=== PATIENT | male | born 1990 ===

== ENCOUNTER 2021-05-15 16:35 | Emergency (ER) | payer SELFPAY ==
[2021-05-15] MEDS ORDERED: ONDANSETRON 4 MG ODT TAB PO ONE (17:41)
[2021-05-15] MEDS ORDERED: MECLIZINE 25 MG TAB PO ONE (17:45)
--- NOTE | 2021-05-15 17:45 | Emergency Department Report ---
ED General Adult HPI - General Chief complaint: Dizziness Stated complaint: DIZZINESS WITH CHILLS Time Seen by Provider: 05/15/21 17:27 Source: judge's clerk Mode of arrival: Ambulatory Limitations: Language Barrier - Related Data Allergies Allergy/AdvReac Type Severity Reaction Status Date / Time No Known Allergies Allergy Verified 05/15/21 16:44 ED Review of Systems ROS: Stated complaint: DIZZINESS WITH CHILLS Other details as noted in HPI ED Past Medical Hx - Past Medical History Previous Medical History?: No ED Physical Exam - General Limitations: Language Barrier ED Course Vital Signs 05/15/21 16:42 Temperature 98.5 F Pulse Rate 98 H Respiratory 16 Rate Blood Pressure 154/71 O2 Sat by Pulse 97 Oximetry Critical care attestation.: If time is entered above; I have spent that time in minutes in the direct care of this critically ill patient, excluding procedure time. ED Disposition Condition: Stable Referrals: PRIMARY CARE [Primary Care Provider] - 3-5 Days
[2021-05-15 18:27] LABS: Basophils # (Auto) 0.1 K/mm3 (0.0-0.1); Basophils % (Auto) 0.6 % (0.0-1.8); Eosinophils # (Auto) 0.5 K/mm3 (0.0-0.4); Eosinophils % (Auto) 4.6 % (0.0-4.3); Hematocrit 45.3 % (35.5-45.6); Lymphocytes # (Auto) 3.5 K/mm3 (1.2-5.4); Lymphocytes % (Auto) 30.6 % (13.4-35.0); Mean Corpuscular HGB Conc 33 % (32-34); Mean Corpuscular Volume 84 fl (84-94); Monocytes % (Auto) 8.9 % (0.0-7.3); Platelet Count 276 K/mm3 (140-440); Red Cell Distribution Width 12.9 % (13.2-15.2)
[2021-05-15 18:30] LABS: Alanine Aminotransferase 54 units/L (7-56); Albumin 4.7 g/dL (3.9-5); BUN/Creatinine Ratio 16; Blood Urea Nitrogen 14 mg/dL (9-20); Calcium 9.6 mg/dL (8.4-10.2); Hemolysis Index 6
--- NOTE | 2021-05-15 18:45 | Emergency Department Report ---
ED General Adult HPI - General Chief complaint: Dizziness Stated complaint: DIZZINESS WITH CHILLS Time Seen by Provider: 05/15/21 17:27 Source: time piece repairer Mode of arrival: Ambulatory Limitations: Language Barrier - History of Present Illness Initial comments: 30-year-old -[place] male patient presents with complaints of sudden onset of dizziness this morning. He states it occurred while he was eating and he became nauseous. He denies any vomiting, headache, fever/chills/sweats, chest pain, shortness of breath, urinary symptoms, or diarrhea/constipation. No pain per patient. Past medical history per patient. He states the dizziness fe els like lightheadedness and worsens with movement of his head. No ringing in the ears or hearing loss - Related Data Previous Rx's Medication Instructions Recorded Last Taken Type Meclizine [Antivert] 25 mg PO TID PRN #20 tab 05/15/21 Unknown Rx Ondansetron [Zofran Odt] 4 mg PO Q8HR PRN #15 tab.rapdis 05/15/21 Unknown Rx Allergies Allergy/AdvReac Type Severity Reaction Status Date / Time No Known Allergies Allergy Verified 05/15/21 16:44 ED Review of Systems ROS: Stated complaint: DIZZINESS WITH CHILLS Other details as noted in HPI Constitutional: denies: chills, diaphoresis, fever, malaise, weakness ENT: denies: ear pain Respiratory: denies: cough, shortness of breath Cardiovascular: denies: chest pain Gastrointestinal: nausea. denies: abdominal pain, vomiting, diarrhea, constipation, hematemesis, melena Genitourinary: denies: urgency, dysuria, frequency, hematuria Skin: denies: rash, lesions, change in color Neurological: denies: headache ED Past Medical Hx - Past Medical History Previous Medical History?: No - Medications Home Medications: Home Medications Medication Instructions Recorded Confirmed Last Taken Type Meclizine [Antivert] 25 mg PO TID PRN #20 tab 05/15/21 Unknown Rx Ondansetron [Zofran Odt] 4 mg PO Q8HR PRN #15 tab.rapdis 05/15/21 Unknown Rx ED Physical Exam - General Limitations: Language Barrier General appearance: alert, in no apparent distress - Head Head exam: Present: atraumatic, normocephalic - Eye Eye exam: Present: normal appearance. Absent: scleral icterus - ENT ENT exam: Present: normal exam - Neck Neck exam: Present: normal inspection - Respiratory Respiratory exam: Present: normal lung sounds bilaterally. Absent: respiratory distress - Cardiovascular Cardiovascular Exam: Present: regular rate, normal rhythm. Absent: systolic murmur, diastolic murmur, rubs, gallop - GI/Abdominal GI/Abdominal exam: Present: soft. Absent: tenderness - Neurological Exam Neurological exam: Present: alert, oriented X3, CN II-XII intact, normal gait. Absent: motor sensory deficit - Expanded Neurological Exam Expanded Cerebellar function: Finger to Nose: Normal, Heel to Garcia: Normal, Romberg: Normal Sensory exam: Upper Extremity Light Touch: Normal, Lower Extremity Light Touch: Normal Motor strength exam: RUE: 4, LUE: 4, RLE: 4, LLE: 4 Best Eye Response ([place]): (4) open spontaneously Best Motor Response ([place]): (6) obeys commands Best Verbal Response ([place]): (5) oriented Kael Total: 15 - Psychiatric Psychiatric exam: Present: normal affect, normal mood - Skin Skin exam: Present: warm, dry, intact, normal color. Absent: rash ED Course Vital Signs 05/15/21 16:42 Temperature 98.5 F Pulse Rate 98 H Respiratory 16 Rate Blood Pressure 154/71 O2 Sat by Pulse 97 Oximetry ED Medical Decision Making - Lab Data Result diagrams: 05/15/21 17:56 05/15/21 17:56 - Medical Decision Making 30-year-old -[place] male patient presents with complaints of sudden onset of dizziness this morning. He states it occurred while he was eating and he became nauseous. He denies any vomiting, headache, fever/chills/sweats, chest pain, shortness of breath, urinary symptoms, or diarrhea/constipation. No pain per patient. Past medical history per patient. He states the dizziness feels like lightheadedness and worsens with movement of his head. No ringing in the ears or hearing loss Mild dehydration noted on labs. Neuro exam is normal. EKG is normal. Patient given meclizine and Zofran and states his symptoms have resolved. Suspect vertigo. Recommend follow-up with PCP and ENT, referrals provided. Patient is otherwise well-appearing and stable for discharge home. Strict return precautions were discussed in detail with patient who states understanding Critical care attestation.: If time is entered above; I have spent that time in minutes in the direct care of this critically ill patient, excluding procedure time. ED Disposition Clinical Impression: Dizziness, Nausea Disposition: 01 HOME / SELF CARE / HOMELESS Is pt being admited?: No Condition: Stable Instructions: Vertigo, [id number], Dizziness, [id number], Dizziness Prescriptions: Meclizine [Antivert] 25 mg PO TID PRN #20 tab PRN Reason: dizziness Ondansetron [Zofran Odt] 4 mg PO Q8HR PRN #15 tab.rapdis PRN Reason: Nausea Referrals: [facility] [Outside] - 3-5 Days [facility] [Provider Group] - 3-5 Days Forms: Work/School Release Form(ED) Print Language: VINCENTIAN
[2021-05-15 19:14] VITALS: BP 154/79
--- NOTE | 2021-05-16 11:07 | Electrocardiograph Report ---
[facility] Test Date: 2021-05-15 Test Time: 16:49:57 Pat Name: JEFF ROSADO Department: Room: Gender: M Grants Specialist: PEPE : 1990 Requested By: HUNTER MENEZES Order Number: [id number] Reading MD: Mateusz Cox Measurements Intervals [place] Rate: 93 P: 40 SD: 133 QRS: 77 QRSD: 85 T: -25 QT: 330 QTc: 410 Interpretive Statements Sinus rhythm Nonspecific repol abnormality, inferior leads No previous ECG available for comparison Electronically Signed On 05-16-2021 11:07:28 EST by Mateusz Cox
== END 2021-05-15 19:19 | disposition home or self-care (01) ==
LOC: ED 16:35
DX: R42 Dizziness and giddiness (principal); R11.0 Nausea
CPT/HCPCS: 36415; 80053; 84484; 85025; 93005; 99283; J3490; Q0162